=== PATIENT | male | born 1975 | race African-American/Black ===

== ENCOUNTER → 2017-07-10 | Outpatient (CLI) | payer MEDICAID, MEDICARE ==
[~2017-07-10] MED LIST: INSU100I11 SQ; INSU100I13 SQ; INSU100V8 SQ; ZOLP10TA PO
--- NOTE | 2017-07-11 08:32 | RAD ---
INDICATION: Low back pain and bilateral lower extremity radiculopathy, greater on the left. TECHNIQUE: Sagittal T1, sagittal T2, sagittal STIR, axial T1, and axial T2 sequences are provided. No comparison is available. FINDINGS: There is no malalignment. There is no marrow edema. There is no worrisome marrow lesion. There is an L4 hemangioma. There is disc desiccation at the lumbosacral junction. The conus medullaris is normal and signal intensity and in position. The numbering system assumes 5 lumbar type vertebral bodies. Findings by individual level are as follows: L1-L2, L2-L3, L3-L4, L4-L5: There is no canal or foraminal compromise at these levels. L5-S1: There is a minimal diffuse disc bulge. There is a left paracentral protrusion measuring at least 24 mm at its base and measuring 4 to 5 mm in height. This contacts both S1 nerve roots, greater on the left, and could explain an S1 radiculopathy. There is no canal stenosis, midline AP diameter of the thecal sac is still 12 mm. There is minimal foraminal narrowing. 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 Electronically signed by: Rick Blanco MD (07/11/2017 8:29 AM) [id number]
== END | disposition home or self-care (01) ==
LOC: MRI 11:15
PROVIDERS: ATTEND Family Medicine
DX: M54.16 Radiculopathy, lumbar region (principal)
CPT/HCPCS: 72148

== ENCOUNTER → 2017-08-13 | Outpatient (CLI) | payer MEDICARE ==
--- NOTE | 2017-08-13 22:42 | PAIN ---
DATE OF SERVICE: 08/13/2017 CHIEF COMPLAINT: Low back and left greater than right lower extremity pain. HISTORY OF PRESENT ILLNESS: This is a 42-year-old male who presents with history of pain in the low back, bilateral lower extremities since 06/26. The patient reports it occurred suddenly, but is not a result of any specific injury or action he is aware of, just had the pain increased when he was picking some items up off the floor, not anything heavy or strenuous, but had some tenderness and pain radiating in the posterior gluteus, posterior thigh, mostly on the left side, but occasionally on the right at that time ____ the left knee posteriorly and into the left calf. The patient reports it has been getting worse since that time. He has just started physical therapy yesterday, has only done one session and reports that he felt somewhat better after he was finished, but is too early to really tell if it has been helpful or not. The patient describes the pain as constant, aching, dull, shooting and radiating into the left lower extremity greater than the right; again right side staying only into the low back and hip, but the left side going down into the foot as well. The patient did have an MRI scan of the lumbar spine showing a herniated centered left paracentral L5-S1 disk contacting both exiting S1 nerve roots, greater on the left side. The patient reports disability rating from 0-10, 10 being the worst, 1 with family and home responsibilities, occupation and life support activities, 2 with recreation and self-care activities. The patient has had no other therapies at this time. Started physical therapy again yesterday x 1 session. The patient reports no loss of motor function, but significant fatigability in the left lower extremity with standing and walking more than about 10 minutes. PAST MEDICAL HISTORY: Significant for type 1 diabetes, insulin dependent; history of arthritis. Otherwise, the patient has been in very good health. PAST SURGICAL HISTORY: Has not had any previous surgeries. FAMILY HISTORY: Significant for no major medical problems or conditions that he is aware of. SOCIAL HISTORY: The patient does not smoke, does not drink alcohol. He is single, lives locally in [place], [place]. REVIEW OF SYSTEMS: The patient's review of systems is positive for those items mentioned in history of present illness. It is complete, full and well documented on the patient's chart. MEDICATIONS: Include Lantus insulin and Humalog insulin. ALLERGIES: THE PATIENT IS ALLERGIC TO PENICILLIN. PHYSICAL EXAMINATION: VITAL SIGNS: The patient's blood pressure is 114/73, pulse is 74, respirations 18, temperature is 98.0 degrees Fahrenheit. Height is 6 feet, weight is 178 pounds. GENERAL: The patient is awake, alert, oriented, appropriate, is a very pleasant demeanor. HEENT: Head shows normocephalic, atraumatic. Extraocular movements are intact, symmetrical. Oral cavity, mucous membranes are moist and pink. Dentition is intact. NECK: Shows anterior throat supple without palpable lymphadenopathy noted. Swallow reflex is symmetrical. CHEST: Shows normal on inspection. Breath sounds are clear to auscultation bilaterally. HEART: Shows S1 and S2 clear. No murmurs auscultated. ABDOMEN: Soft, nontender, nondistended. No palpable organomegaly is noted. No rebound or guarding demonstrated. MUSCULOSKELETAL: Back shows spine grossly in the midline. The patient's back shows normal appearing thoracic kyphosis, cervical lordotic curvature and lumbar lordotic curvature. No previous bruises, lesions, rashes or scars are noted. Lumbar paraspinous muscle shows symmetrical with inspection. On palpation shows some moderate tenderness to palpation bilaterally in the lumbar distribution, but only diffusely without radiation, without trigger points. No tenderness over the sacrum or sacroiliac regions or the spinous processes themselves. The patient shows good rotational motion of the lumbar spine, both laterally greater than 10 degrees right and left as well as extension greater than 10 degrees, forward flexion at 45 degrees without difficulty or pain reported. Lower extremities show deep tendon reflexes 2+ in the patellar and 1+ tendo-calcaneus tendons, are equal. Motor exam is approximately 4 on a scale of 5 on left dorsiflexion, extension, quadriceps and hamstring flexion; 5/5 on the right. Peripheral pulses are 2+ posterior tibial and dorsalis pedis pulses. No peripheral edema is noted. No clubbing, no cyanosis. Lower extremities are warm and dry to touch, equal in color and appearance. Straight leg raising noted to be positive on the left at about 40 degrees, which decreased with knee flexion; right side is negative. Gaenslen and Willy maneuvers are negative bilaterally. The patient is able to stand, stand on his toes without significant difficulty. He does have a cane that he has with him and he uses this in his right hand when ambulating, appears to have a significant favoring gait, favoring the left lower extremity at some extent. IMPRESSION: 1. This is a 42-year-old male with approximate 6-week history of increasing pain in low back, bilateral lower extremities, worse on the left than the right without any accident or injury noted. 2. MRI scan of lumbar spine as noted. 3. Diabetes. PLAN: Options were discussed with the patient including conservative medical management, physical therapy, interventional techniques and he would like to pursue a most conservative course at this time. We discussed maintaining his current just started course of physical therapy. The patient only had 1 session and will give this time to be more effective. If not significantly improved, the patient is interested in pursuing interventional techniques. We discussed the lumbar epidural steroid injection using description as well as anatomical models to describe the procedure and will follow up after physical therapy. After several weeks, if not significantly improved, we may consider this as an option. BRAYDEN GREEN MD DR: MAXINE/natalie JOB#: [id number] / [id number]
== END | disposition home or self-care (01) ==
LOC: PNCL 12:38
PROVIDERS: ATTEND Anesthesiology
DX: M51.16 Intervertebral disc disorders with radiculopathy, lumbar region (principal); M79.604 Pain in right leg; Z88.0 Allergy status to penicillin; R53.83 Other fatigue; Z79.4 Long term (current) use of insulin
CPT/HCPCS: G0463